=== PATIENT | female | born 1990 | race Caucasian/White ===

== ENCOUNTER 2021-04-15 01:28 | Inpatient (IN) | payer OTHER ==
[2021-04-15] MEDS ORDERED: ACETAMINOPHEN 1000 MG/100 ML BAG IVPB ONE (02:01)
[2021-04-15] MEDS ORDERED: METOCLOPRAMIDE HCL INJECTION 10 MG/2 ML VIAL IVPB ONE (02:03)
[2021-04-15] MEDS ORDERED: SODIUM CHLORIDE 0.9% 500 ML INFUS.BAG IV ONE (02:03)
[2021-04-15] MEDS ORDERED: METOCLOPRAMIDE HCL INJECTION 10 MG/2 ML VIAL ONE (03:05)
[2021-04-15] MEDS ORDERED: ACETAMINOPHEN INJECTION 100 ML IVPB ONE (03:06)
[2021-04-15 03:24] LABS: BASO % 0.3 % (0-2.0); EOS % 0.8 % (0-4.5); HEMATOCRIT 42.3 % (32.4-45.2); HEMOGLOBIN 14.4 GM/dL (10.7-15.3); LYMPH % 6.6 % (8-40); MCH 31.9 pg (25.7-33.7); MEAN CELL VOLUME 93.9 fl (80-96); MEAN PLT VOLUME 9.2 fl (7.5-11.1); MONO % 8.5 % (3.8-10.2); NEUT % 83.8 % (42.8-82.8); PLATELET COUNT 207 10^3/uL (134-434); RDW 13.8 % (11.6-15.6); WHITE BLOOD COUNT 8.7 K/mm3 (4.0-10.0)
[2021-04-15 03:53] LABS: CHLORIDE 108 mmol/L (98-107); SODIUM 139 mmol/L (136-145)
[2021-04-15 03:55] LABS: CALCIUM 8.6 mg/dL (8.5-10.1)
[2021-04-15 03:56] LABS: ALBUMIN 3.8 g/dl (3.4-5.0); ANION GAP 7 MMOL/L (8-16); BLOOD UREA NITROGEN 15.4 mg/dL (7-18); CO2 25 mmol/L (21-32); GLUCOSE,RANDOM 108 mg/dL (74-106); LIPASE 89 U/L (73-393)
[2021-04-15 03:57] LABS: EPI CELLS >36 /uL (0-25.1); HYALINE CASTS 2 /uL (0-3.1); PH,URINE 7.5 (5.0-8.0); URINE APPEARANCE CLOUDY; URINE BACTERIA 4379 /uL (0-1359); URINE BILIRUBIN NEGATIVE (NEGATIVE); URINE COLOR YELLOW; URINE GLUCOSE (UA) NEGATIVE (NEGATIVE); URINE KETONE NEGATIVE (NEGATIVE); URINE LEUK ESTERASE TRACE (NEGATIVE); URINE NITRITE NEGATIVE (NEGATIVE); URINE PROTEIN NEGATIVE (NEGATIVE); URINE UROBILINOGEN 0.2 mg/dL (0.2-1.0); URINE WBC 213 /uL (0-25.8)
[2021-04-15 03:58] LABS: CREATININE 0.8 mg/dL (0.55-1.3)
[2021-04-15 03:59] LABS: SGPT/ALT 525 U/L (13-61)
[2021-04-15 04:00] LABS: BILIRUBIN,TOTAL 2.9 mg/dL (0.2-1); TOT PROT 7.1 g/dl (6.4-8.2)
[2021-04-15 04:02] LABS: ALK PHOS 166 U/L (45-117)
[2021-04-15] MEDS ORDERED: CEFTRIAXONE 1,000 MG in DEXTROSE 5%-WATER - 50 ML IVPB ONE (04:07)
[2021-04-15 04:09] LABS: SGOT/AST 1128 U/L (15-37)
[2021-04-15] MEDS ORDERED: morphine CARPU-JECT 2 MG/1 ML DISP.SYRIN IVPUSH ONE (04:30)
[2021-04-15] MEDS ORDERED: MAG HYDROX/AL HYDROX/SIMETH 30 ML UNIT-DOSE CUP PO ONE (07:56)
[2021-04-15] MEDS ORDERED: FAMOTIDINE 20 MG/50 ML IVPB 20 MG/50 ML MG IVPB ONE ×2 (07:56→08:04)
[2021-04-15] MEDS ORDERED: SUCRALFATE 1 GM TABLET (FP) PO ONE (07:57)
[2021-04-15] MEDS ORDERED: SUCRALFATE 1 GM TABLET (FP) ONE (08:04)
[2021-04-15] MEDS ORDERED: MAG HYDROX/AL HYDROX/SIMETH 30 ML UNIT-DOSE CUP ONE (08:04)
[2021-04-15 08:35] LABS: URINE RBC 26 /uL (0-23.9)
[2021-04-15] MEDS ORDERED: LACTATED RINGERS SOLUTION 1000 ML INFUS.BAG IV ONE (10:20)
[2021-04-15 13:33] LABS: CALCIUM 8.1 mg/dL (8.5-10.1)
[2021-04-15 13:34] LABS: ALBUMIN 3.5 g/dl (3.4-5.0)
[2021-04-15 13:37] LABS: CREATININE 0.6 mg/dL (0.55-1.3)
[2021-04-15 13:39] LABS: BILIRUBIN,TOTAL 2.7 mg/dL (0.2-1); TOT PROT 6.6 g/dl (6.4-8.2)
[2021-04-15 14:15] LABS: INR 1.14 (0.83-1.09); PROTHROMBIN TIME (PATIENT) 13.1 SEC (9.7-13.0)
[2021-04-15 14:18] LABS: ACTIVATED PTT 40.7 SECONDS (25.2-36.5)
[2021-04-15 14:24] LABS: SARS AG REFLEX COV19 SEND OUT negative (Negative)
[2021-04-15] MEDS ORDERED: oxyCODONE HCL 5 MG TABLET ONE ×2 (16:57→23:30)
[2021-04-15] MEDS: oxyCODONE HCL 5 MG TABLET PO PRN ×2 (17:10→23:44)
[2021-04-15] MEDS ORDERED: BACLOFEN 10 MG TABLET (FP) ONE (23:30)
[2021-04-15] MEDS ORDERED: HEPARIN NA (PORCINE) 5,000 UNITS/ML 1ML VIAL ONE (23:30)
[2021-04-15] MEDS: HEPARIN NA (PORCINE) 5,000 UNITS/ML 1ML VIAL SQ SCH (23:43)
[2021-04-15] MEDS: BACLOFEN 10 MG TABLET (FP) PO SCH (23:45)
[2021-04-16 01:06] VITALS: BMI 32.1
[2021-04-16] MEDS: HEPARIN NA (PORCINE) 5,000 UNITS/ML 1ML VIAL SQ SCH ×3 (02:47→18:24)
[2021-04-16] MEDS: BACLOFEN 10 MG TABLET (FP) PO SCH ×3 (05:40→22:28)
[2021-04-16] MEDS: oxyCODONE HCL 5 MG TABLET PO PRN ×3 (05:40→18:25)
[2021-04-16 11:06] LABS: BASO % 0.5 % (0-2.0); EOS % 3.4 % (0-4.5); HEMATOCRIT 39.5 % (32.4-45.2); HEMOGLOBIN 12.9 GM/dL (10.7-15.3); LYMPH % 28.4 % (8-40); MCH 31.3 pg (25.7-33.7); MCHC 32.6 g/dl (32.0-36.0); MEAN CELL VOLUME 95.8 fl (80-96); MEAN PLT VOLUME 10.1 fl (7.5-11.1); NEUT % 58.7 % (42.8-82.8); PLATELET COUNT 213 10^3/uL (134-434); RBC 4.13 M/mm3 (3.60-5.2); RDW 13.9 % (11.6-15.6); WHITE BLOOD COUNT 5.5 K/mm3 (4.0-10.0)
[2021-04-16 11:17] LABS: ALBUMIN 3.4 g/dl (3.4-5.0); BLOOD UREA NITROGEN 10.5 mg/dL (7-18); CALCIUM 8.5 mg/dL (8.5-10.1)
[2021-04-16 11:20] LABS: CREATININE 0.7 mg/dL (0.55-1.3)
[2021-04-16 11:22] LABS: TOT PROT 6.6 g/dl (6.4-8.2)
[2021-04-16 15:07] LABS: SARS-CoV-2 NAA Not Detected (Not Detected)
[2021-04-17] MEDS: HEPARIN NA (PORCINE) 5,000 UNITS/ML 1ML VIAL SQ SCH ×2 (02:27→10:31)
[2021-04-17] MEDS: oxyCODONE HCL 5 MG TABLET PO PRN (02:40)
[2021-04-17] MEDS: BACLOFEN 10 MG TABLET (FP) PO SCH ×2 (05:46→14:19)
[2021-04-17 11:44] LABS: ALBUMIN 3.4 g/dl (3.4-5.0)
[2021-04-17 11:47] LABS: CREATININE 0.7 mg/dL (0.55-1.3)
[2021-04-17 11:49] LABS: BILIRUBIN,TOTAL 0.7 mg/dL (0.2-1); TOT PROT 6.5 g/dl (6.4-8.2)
[2021-04-17 12:42] LABS: BASO % 0.5 % (0-2.0); EOS % 1.9 % (0-4.5); HEMATOCRIT 39.4 % (32.4-45.2); HEMOGLOBIN 13.6 GM/dL (10.7-15.3); LYMPH % 24.6 % (8-40); MCH 32.4 pg (25.7-33.7); MCHC 34.4 g/dl (32.0-36.0); MEAN PLT VOLUME 9.5 fl (7.5-11.1); MONO % 8.5 % (3.8-10.2); NEUT % 64.5 % (42.8-82.8); PLATELET COUNT 224 10^3/uL (134-434); RBC 4.19 M/mm3 (3.60-5.2); RDW 13.9 % (11.6-15.6); WHITE BLOOD COUNT 6.7 K/mm3 (4.0-10.0)
[2021-04-17 12:50] LABS: INR 1.06 (0.83-1.09); PROTHROMBIN TIME (PATIENT) 12.2 SEC (9.7-13.0)
[2021-04-17 14:21] VITALS: BP 116/65; PULSE 71; TEMP 99.2
[2021-04-17 22:06] LABS: TRANSGLUTAMINASE IGA < 2 U/mL (0-3)
[2021-04-18 13:07] LABS: TRANSGLUTAMINASE IGG < 2 U/mL (0-5)
== END 2021-04-17 16:43 | disposition home or self-care (01) | DRG 532 ==
LOC: JER 01:28 → JERBED 12:59 → OBSVTOIN 12:59 → J6S 04-16 00:20
DX: T83.32XA Displacement of intrauterine contraceptive device, initial encounter (principal); Y84.8 Other medical procedures as the cause of abnormal reaction of the patient, or of later complication, without mention of misadventure at the time of the procedure; R10.13 Epigastric pain; R51.9 Headache, unspecified; R74.01 Elevation of levels of liver transaminase levels; R11.2 Nausea with vomiting, unspecified; M54.30 Sciatica, unspecified side; N88.8 Other specified noninflammatory disorders of cervix uteri; Z98.84 Bariatric surgery status; E66.9 Obesity, unspecified; Z68.32 Body mass index [BMI] 32.0-32.9, adult
CPT/HCPCS: 36415; 74176-TC; 74182-TC; 76705-TC; 76830-TC; 80053; 80307; 81003; 82103; 82248; 82977; 83516; 83690; 84702; 85025; 85610; 85730; 86038; 86704; 86705; 86803; 87340; 87426; 87517; 99285-25; A9579; C9803; J0475; J1644; U0003; U0005